=== PATIENT | female | born 1955 | race African-American/Black ===

== ENCOUNTER 2022-02-16 15:03 | Emergency (ER) | payer OTHER ==
[~2022-02-16] VITALS: Ht 165.1 cm; Wt 58.1 kg
[~2022-02-16 15:03] MED LIST: HYDR25TA4 PO; NAPR-1166; TRAM1TAB; TRIA1TAB3
[2022-02-16] MEDS ORDERED: FLUORESCEIN SODIUM OPHTH 1 EA STRIP OP ONE (16:00)
[2022-02-16] MEDS ORDERED: FLUORESCEIN SODIUM OPHTH 1 EA STRIP ONE (16:14)
[2022-02-16] MEDS ORDERED: TETRAcaine 5 ML BOTTLE EACHEYE ONE (16:30)
--- NOTE | 2022-02-16 16:45 | NUR ---
66 YRS FEMALE C/O forebody ON rt ye no pain discomfort
[2022-02-16] MEDS ORDERED: ERYT3.5O9 EACHEYE (17:34)
--- NOTE | 2022-02-16 17:35 | NUR ---
EYE EXAMINE DONE BY DR. MOCK PLAN TO D/C HOME WITH RX
--- NOTE | 2022-02-16 17:58 | NUR ---
D/C INSTRACTION GIVEN TO PT FULLY AND VERBLIZED UNDERSTOOD D/C STABLE COUNDITION NO PAIN ON EYES
[2022-02-16 18:06] VITALS: BP 147/74
== END 2022-02-16 18:10 | disposition home or self-care (01) ==
LOC: ER 15:06
DX: H57.11 Ocular pain, right eye (principal); I10 Essential (primary) hypertension; Z88.8 Allergy status to other drugs, medicaments and biological substances; Z60.2 Problems related to living alone; Z79.899 Other long term (current) drug therapy

== ENCOUNTER 2023-12-28 12:54 | Emergency (ER) | payer OTHER ==
[~2023-12-28] VITALS: Ht 165.1 cm; Wt 58.1 kg
[~2023-12-28 12:54] MED LIST changes: +ERYT3.5O9 EACHEYE
[2023-12-28 13:43] LABS: BASOPHILS % (AUTO) 0.7 % (0.0-2.0); EOSINOPHILS % (AUTO) 0.9 % (0.0-6.0); HEMATOCRIT 41 % (33-45); HEMOGLOBIN 13.3 g/dL (11.5-14.8); LYMPHOCYTES # (AUTO) 1.9 K/uL (0.8-4.8); LYMPHOCYTES % (AUTO) 41.2 % (20.0-44.0); MEAN CORPUSCULAR HEMOGLOBIN 27 PG (26.0-33.0); MEAN CORPUSCULAR HGB CONC 33 g/dl (31.0-36.0); MEAN CORPUSCULAR VOLUME 84 fL (82-100); MONOCYTES # (AUTO) 0.4 K/uL (0.1-1.30); MONOCYTES % (AUTO) 7.8 % (2.0-12.0); NEUTROPHILS # (AUTO) 2.3 K/uL (1.8-8.9); NEUTROPHILS % (AUTO) 49.4 % (43.0-81.0); PLATELET COUNT (AUTO) 235 K/uL (150-450); RED BLOOD CELL COUNT(AUTO) 4.88 MIL/uL (4.0-5.2); RED CELL DISTRIBUTION WIDTH 13.2 % (11.5-15.0); WHITE BLOOD COUNT (AUTO) 4.7 K/uL (4.3-11.0)
[2023-12-28] MEDS ORDERED: KETOROLAC TROMETHAMINE 15 MG/ML VIAL ONE (13:47)
[2023-12-28] MEDS: KETOROLAC TROMETHAMINE 15 MG/ML VIAL IV ONE (13:49)
[2023-12-28 14:00] LABS: CALCIUM, SERUM 9.2 mg/dL (8.5-10.1); CREATININE 1.1 mg/dL (0.6-1.3); POTASSIUM 3.7 mmol/L (3.5-5.1)
[2023-12-28] MEDS ORDERED: ACET-73 PO (14:46)
[2023-12-28] MEDS ORDERED: IBUP-1953 PO (14:46)
[2023-12-28 16:48] VITALS: BP 132/92; TEMP 98.1; O2SAT 100
== END 2023-12-28 16:48 | disposition home or self-care (01) ==
LOC: ER 13:07
DX: M54.6 Pain in thoracic spine (principal); M54.2 Cervicalgia; I10 Essential (primary) hypertension; Z88.8 Allergy status to other drugs, medicaments and biological substances; Z60.2 Problems related to living alone; Z79.899 Other long term (current) drug therapy; V49.9XXA Car occupant (driver) (passenger) injured in unspecified traffic accident, initial encounter; Y93.89 Activity, other specified; Y92.89 Other specified places as the place of occurrence of the external cause; Y99.8 Other external cause status
CPT/HCPCS: 99285; 72125; 96374; 72128; 85025; 80048; 36415; J1885

== ENCOUNTER 2024-01-26 16:28 | Emergency (ER) | payer OTHER ==
[~2024-01-26] VITALS: Ht 165.1 cm; Wt 57.6 kg
[~2024-01-26 16:28] MED LIST changes: +ACET-73 PO; +IBUP-1953 PO
[2024-01-26 16:50] VITALS: BP 135/81; TEMP 98.7
[2024-01-26] MEDS ORDERED: IBUP-1955 PO (17:55)
[2024-01-26] MEDS ORDERED: CYCL5TAB PO (17:55)
[2024-01-26] MEDS ORDERED: ACET-2605 PO (17:55)
[2024-01-26] MEDS ORDERED: LIDOCAINE 5% (PATCH) 1 EA PATCH TP ONE (17:59)
[2024-01-26] MEDS: LIDOCAINE 5% (PATCH) 1 EA PATCH TP ONE (18:00)
[2024-01-26 18:27] VITALS: O2SAT 100
== END 2024-01-26 18:28 | disposition home or self-care (01) ==
LOC: ER 16:30
DX: M54.2 Cervicalgia (principal); M54.50 Low back pain, unspecified; M54.6 Pain in thoracic spine; I10 Essential (primary) hypertension; Z79.899 Other long term (current) drug therapy; Z60.2 Problems related to living alone; Z88.1 Allergy status to other antibiotic agents